=== PATIENT | male | born 1990 | race Caucasian/White ===

== ENCOUNTER 2020-05-27 13:47 | Observation (INO) | payer MEDICAID ==
[2020-05-27] VITALS (9 sets, daily range): BP systolic 101–120; BP diastolic 55–78; Ht 170.2 cm; Wt 80.1 kg
[~2020-05-27] VITALS: Ht 170.2 cm; Wt 80.1 kg
[2020-05-27] MEDS ORDERED: BUPRENORPHIN-N1 EACH SL (13:49)
[2020-05-27 14:07] LABS: BASOPHILS 0.3 % (0-2); HEMOGLOBIN 15.1 g/dL (13.5-17.5); IMMATURE GRANULOCYTES 0.3 % (0-5); LYMPHOCYTES 15.9 % (15-50); MCHC 35.1 g/dL (31.0-37.0); MCV 85.5 fL (80.0-100.0); MEAN PLATELET VOLUME 9.4 fL (7.4-10.4); MONOCYTES 5.1 % (2-11); NEUTROPHILS 73.4 % (40-80); PLATELET COUNT 258 10x3/uL (130-400); RBC 5.03 10x6/uL (4.20-6.10); RDW 13.4 % (11.5-14.5); WBC 11.5 10x3/uL (4.8-10.8)
[2020-05-27 14:14] LABS: CALC OSMOLALITY 274 mosm/kg (275-300); CALCIUM 8.8 mg/dL (8.5-10.1); CARBON DIOXIDE 25.6 mmol/L (21.0-32.0); CHLORIDE - SERUM 100 mmol/L (98-107); POTASSIUM - SERUM 3.3 mmol/L (3.5-5.1); SODIUM 136 mmol/L (136-145); UREA NITROGEN 11 mg/dL (7-18); eGFR NON AFRICAN AMERICAN > 90 mL/min (90-120)
[2020-05-27 14:17] LABS: GLUCOSE 176 mg/dL (74-106)
[2020-05-27 14:20] LABS: ALBUMIN 3.7 g/dL (3.4-5.0); ALKALINE PHOSPHATASE 89 U/L (30-120); ALT (SGPT) 24 U/L (10-68); BILIRUBIN - TOTAL 0.66 mg/dL (0.2-1.3); PROTEIN - SERUM 7.8 g/dL (6.4-8.2)
[2020-05-27 14:45] LABS: BILIRUBIN NEGATIVE (NEGATIVE); KETONE SMALL mg/dL (NEGATIVE); NITRITE NEGATIVE (NEGATIVE); UROBILINOGEN NORMAL mg/dL (< 2)
[2020-05-27 14:48] LABS: UDS - AMPHET POSITIVE QUAL (NEGATIVE); UDS - BARB NEGATIVE QUAL (NEGATIVE); UDS - BENZO NEGATIVE QUAL (NEGATIVE); UDS - COCAINE NEGATIVE QUAL (NEGATIVE); UDS - OPIATE POSITIVE QUAL (NEGATIVE); UDS - PCP NEGATIVE QUAL (NEGATIVE); UDS - THC POSITIVE QUAL (NEGATIVE)
[2020-05-27 14:51] LABS: EPITHELIAL CELLS NSEEN /hpf (0-5); WHITE CELLS - URINE 0-5 HPF (0-1)
[2020-05-27 14:52] LABS: BACTERIA FEW /HPF (NONE SEEN); GRANULAR CAST 0-5 /lpf (NONE SEEN)
--- NOTE | 2020-05-27 17:15 | NUR ---
ADMITTED FROM ER PER WHEEL CHAIR. BEGGING FOR WATER. CUP OF WATER PROVIDED . AFTER FINISH WATER, HE STARTED VOMITTING, 2 BLUE BAGS. STATES HE IS STILL THRISTY AND HUNGRY. EXPLAINED WHY HE CAN NOT HAVE ANYTHING ELSE. PATIENT STARTED MAKING THREATS HE IS GOING TO PULL IV OUT AND LEAVE. AFTER TALKING WITH PATIENT PATIENT DECIDED NOT TO LEAVE. ORDERS FOR NAUSEA OBTAINED FROM DR. CHAUHAN. PATIENT STATES HE WAS SHOTTING UP HEROIN AND THE NEXT THING HE KNOWS HE WAS HERE. STATES HIS FAMILY AND EMS DID CPR ON HIM. STATES HE . PATIENT STATES HE WANTS TO GET HELP AND GET OFF HEROIN. STATES HE WAS IN JAIL LAST YEAR AND STILL DID HEROIN OFF AND ON.
--- NOTE | 2020-05-27 19:32 | NUR ---
BEDSIDE REPORT RECEIVED. SANDWICH GIVEN PER PTS REQUEST. HE DENIES FEELING ANXIOUS OR HAVING SUICIDAL IDEATIONS AT THIS TIME. HE HAS NARCAN INFUSING TO HIS RIGHT HAND AT 50ML/HR. URINAL AT BEDSIDE. BED IS LOW AND CALL LIGHT IN REACH.
[2020-05-27 20:35] LABS: CKMB 0.9 U/L (0.0-3.6); CREATINE KINASE 113 UL (21-232); TROPONIN-I 0.037 ng/mL (0.000-0.060)
[2020-05-28] VITALS (8 sets, daily range): BP systolic 90–121; BP diastolic 50–76
--- NOTE | 2020-05-28 00:10 | NUR ---
NARCAN DRIP INFUSION COMPLETE AND PTS IV SALINE LOCKED. HE IS RESTING WITH EYES CLOSED. AROUSES EASILY TO VERBAL STIMULATION. HE DENIES NEEDS. BED LOW AND CALL LIGHT IN REACH. VSS. WILL CONTINUE TO MONITOR.
--- NOTE | 2020-05-28 02:43 | NUR ---
PT RESTING WITH EYES CLOSED. RESPIRATIONS EVEN AND UNLABORED. NO DISTRESS NOTED. VSS. BED IS LOW AND CALL LIGHT WITHIN REACH.
[2020-05-28 03:27] LABS: BASOPHILS 0.3 % (0-2); EOSINOPHILS 3.8 % (0-7); HEMATOCRIT 39.3 % (42.0-54.0); HEMOGLOBIN 13.3 g/dL (13.5-17.5); IMMATURE GRANULOCYTES 0.3 % (0-5); LYMPHOCYTES 19.4 % (15-50); MCH 29.4 pg (26.0-34.0); MCHC 33.8 g/dL (31.0-37.0); MCV 86.9 fL (80.0-100.0); MEAN PLATELET VOLUME 9.5 fL (7.4-10.4); MONOCYTES 6.4 % (2-11); NEUTROPHILS 69.8 % (40-80); PLATELET COUNT 277 10x3/uL (130-400); RBC 4.52 10x6/uL (4.20-6.10); RDW 13.4 % (11.5-14.5); WBC 10.6 10x3/uL (4.8-10.8)
[2020-05-28 03:44] LABS: ALBUMIN 3.1 g/dL (3.4-5.0); ALKALINE PHOSPHATASE 74 U/L (30-120); ALT (SGPT) 20 U/L (10-68); BILIRUBIN - TOTAL 0.59 mg/dL (0.2-1.3); CALCIUM 8.5 mg/dL (8.5-10.1); CARBON DIOXIDE 24.4 mmol/L (21.0-32.0); CHLORIDE - SERUM 105 mmol/L (98-107); CKMB 0.8 U/L (0.0-3.6); CREATINE KINASE 90 UL (21-232); CREATININE - SERUM 0.8 mg/dL (0.6-1.3); PHOSPHOROUS 3.5 mg/dL (2.5-4.9); PROTEIN - SERUM 6.8 g/dL (6.4-8.2); SODIUM 136 mmol/L (136-145); UREA NITROGEN 10 mg/dL (7-18); eGFR NON AFRICAN AMERICAN > 90 mL/min (90-120)
[2020-05-28 03:45] LABS: CALC OSMOLALITY 269 mosm/kg (275-300); GLUCOSE 88 mg/dL (74-106); POTASSIUM - SERUM 4.1 mmol/L (3.5-5.1); TROPONIN-I < 0.017 ng/mL (0.000-0.060)
[2020-05-28 08:46] LABS: CREATINE KINASE 87 UL (21-232)
[2020-05-28 08:50] LABS: TROPONIN-I < 0.017 ng/mL (0.000-0.060)
--- NOTE | 2020-05-28 10:00 | NUR ---
INFORMATION FROM DELIVERY COORDINATOR FOR [facility] PROVIDED TO PATIENT. PATIENT DISCHARGE HOME WITH .
== END 2020-05-28 10:36 | disposition home or self-care (01) ==
LOC: D.ER 13:47 → D.EDHOLD 15:12 → OBSVTIME 15:13 → D.ICU 15:36
PROVIDERS: Family Medicine; ADMIT Family Medicine; ATTEND Family Medicine
DX: T65.91XA Toxic effect of unspecified substance, accidental (unintentional), initial encounter (principal); F19.20 Other psychoactive substance dependence, uncomplicated